=== PATIENT | female | born 1965 | race Caucasian/White ===

== ENCOUNTER 2023-07-17 06:25 | Day surgery (SDC) | payer OTHER, SELFPAY ==
[2023-07-07 16:26] VITALS: BMI 32.8
--- NOTE | 2023-07-08 14:50 | PTCARENOTE ---
Patients 07/07 EKG abnormal- reviewed by Dr. Gayle- no additional interventions required
[2023-07-17] VITALS (17 sets, daily range): BP systolic 110–154; BP diastolic 59–84; BMI 32.8
--- NOTE | 2023-07-17 09:16 | W.SUR.PREOP ---
Pre-Operative Surgical Note
-
I have examined this patient prior to the performance of the scheduled procedure.
The patient's condition is unchanged from the time of the current History and
Physical and the patient is able to undergo the scheduled procedure.
[2023-07-17] MEDS: TYLENOL 1000 MG PO (09:28)
[2023-07-17] MEDS: NORMOSOL-R 1000 IV (09:28)
--- NOTE | 2023-07-17 12:04 | W.IMMPOSTOP ---
Surgical Immed Post Op Note
-
Primary Surgeon: Jay Baig MD
Assisting Surgeon: None
Pre-op Diagnosis: Incisional hernia
Post-op Diagnosis: Incarcerated incisional hernia
Procedure Performed:
Robotic incarcerated incisional hernia repair with mesh (GARY approach)
Anesthesia Type: General
Specimen / Cultures: None
Estimated Blood Loss: 3 cc
Complications: None
Operative Findings: 2 cm supraumbilical incisional defect containing transverse colon/omentum. Defect closed with 0 V-Loc 180 suture. Thin peritoneum, multiple rents made so the defect was reinforced with an 11 cm round Bard ventral light ST
coated mesh secured with a running circumferential 2-0 PDS. Flap closed with a 2-0 Stratafix, rents closed with 0 Vicryl [id number].
--- NOTE | 2023-07-17 12:08 | OR.RPT ---
Operative Report
Operative Report
Patient Name: Krissy Duckworth
: 1965
Date of Operation: 07/17/2023
Preoperative Diagnosis: Incisional hernia
Postoperative Diagnosis: Incarcerated incisional hernia
Procedure(s):
Robotic incarcerated incisional hernia repair with mesh (GARY approach)
Surgeon(s):
Dr. Baig
Assitant(s):
GABI Gamez
Anesthesia: General
Estimated Blood Loss: 3 cc
Urine Output: None
Drains/Lines/Implants:
11 x 11 cm round Bard ventral light ST (polypropylene, coated mesh)
Specimens:
None
HPI/Surgical Indications:
This is a 58-year-old female with a history of prior laparoscopic appendectomy who was seen in my office for a symptomatic umbilical bulge and diagnosed with an incisional hernia at her prior port site. Risks/Benefits/Alternatives were discussed at
length, and the patient agreed to proceed with surgery.
Findings:
2 cm supraumbilical incisional defect containing transverse colon/omentum. Defect closed with 0 V-Loc 180 suture. Thin peritoneum, multiple rents made so the defect was reinforced with an 11 cm round Bard ventral light ST coated mesh secured with
a running circumferential 2-0 PDS. Flap closed with a 2-0 Stratafix, rents closed with 0 Vicryl [id number].
Procedure Description:
The patient was brought to the Operating Room and placed in the supine position with the arms tucked. IV antibiotics were infused and Venodyne stockings placed. Following uneventful induction of general endotracheal anesthesia, an orogastric tube
were placed. The abdomen was prepped and draped in the usual sterile fashion. The abdomen was entered using a Veress technique which required 1 pass, pneumoperitoneum to 15 mmHg was obtained without difficulty. An 8mm trochar was passed through
the abdominal wall roughly 20 cm laterally from the defect in the left upper quadrant, we then confirmed the no inadvertent injury and made while passing the trocar or Veress needle. We then placed two additional 8 mm ports in the left lower
quadrant. Bilateral tap blocks were performed. The robot was docked. We then introduced our prograsper through the inferior/left hand port and a monopolar scissors through the superior port. We then turned our attention to the hernia which had
incarcerated transverse colon and omentum. These were reduced using sharp and electrocautery dissection. No injury had occurred to the underlying incarcerated contents. We then began taking a flap down roughly 6 cm away from the defect and
roughly 12 cm in length taking care to stay in the pretransversalis plane. The peritoneum was very thin and multiple rents were made in the flap particularly at the superior aspect. The preperitoneal fat was taken down off of the posterior rectus
sheath both superior and inferior to the hernia defect such that we were able to get our 'volcano sign'. We then worked on reducing the defect which contained preperitoneal fat and continued our dissection out laterally for an additional 6 to 7 cm.
The patient was noted to have an additional small umbilical defect less than 1 cm just inferior to her incisional hernia. Once our flap was created we introduced a ruler and a 0 V-Loc 180. The the combined hernia defects measured 2 cm. The pocket
measured 12 x 12 cm. Though I anticipated closing many of the rents in the peritoneal flap, I elected to use a coated piece of polypropylene mesh in the form of an 11 cm round Bard [address]ight ST with echo positioning system. After closing the
defect with the 0 V-Loc a Jose Sweeney was passed through the anterior abdominal wall to capture the mesh stay stitch and bring it taut to the abdominal wall. The mesh was then circumferentially secured to the posterior rectus sheath using 2-0
PDS barbed STRATAFIX suture. The echo positioning system was removed. We then closed our flap with 2-0 Monocryl barbed suture. The multiple rents were then sequentially closed with 0 Vicryl [id number]. The superior aspect had a small rent
that was left open as there was no underlying mesh exposed. All sutures were removed. The robot was undocked. The ports were removed under direct visualization and pneumoperitoneum was evacuated. The port sites were closed with 4-0 Monocryl
followed by Dermabond. Counts were correct and overall, the patient tolerated the procedure well and was taken to the Recovery Room postoperatively in stable condition.
I was the attending physician and performed the procedure with assistance from the BLADDER BLOWER above. I was present for all portions of the case except for skin closure.
Jay Baig MD
[2023-07-17] MEDS: ZOFRAN 4 MG IV (13:04)
[2023-07-17] MEDS: COMPAZINE 5 MG IV (13:52)
--- NOTE | 2023-07-17 14:09 | PTCARENOTE ---
Addendum ... Patient stay delayed in PACU R/T nausea and unable to maintain RA sat >92%, H/O SEBASTI[place]N with CPAP. At 1345 patient C/O chest heaviness however denies chest pain, without radiation to jaw or B/L UE. VSS/rhythm remains unchanged, Dr Robert
aware and bedside EKG obtained. Patient reports nausea again and medicated with Compazine as ordered. Dr Robert reviewed EKG, keep patient in PACU until seen by Dr Baig, who was made aware of events. Patient was also bladder scanned for 339ML
urine. Chest heaviness resolved at 1400 and patient now sleeping appears comfortable and VSS.
[2023-07-17] MEDS: ROXICODONE 5 MG PO (15:37)
== END 2023-07-17 15:55 | disposition home or self-care (01) ==
LOC: SDS 06:25
PROVIDERS: ATTENDING PHYSICIAN Surgery; FAMILY PHYSICIAN Family Medicine
DX: K43.0 Incisional hernia with obstruction, without gangrene (principal)
CPT/HCPCS: 49592; 36415; 93005; C1781

== ENCOUNTER → 2023-12-25 14:32 | Outpatient (REF) | payer OTHER, SELFPAY | LOC: RCS 14:32 | PROVIDERS: ATTENDING PHYSICIAN Internal Medicine Cardiovascular Disease; FAMILY PHYSICIAN Family Medicine | DX: I10 Essential (primary) hypertension (principal); R07.2 Precordial pain; I44.7 Left bundle-branch block, unspecified | CPT/HCPCS: 93306 ==